=== PATIENT | male | born 1945 | race Caucasian/White ===

== ENCOUNTER 2018-04-20 11:32 | Observation (INO) ==
[2018-04-20 12:02] LABS: Urine Bilirubin Negative (NEGATIVE); Urine Ketone 15 mg/dL (NEGATIVE); Urine Nitrite Negative (NEGATIVE); Urine Protein 15 mg/dL (NEGATIVE); Urine Urobilinogen Normal (NORMAL); Urine pH 7.5 pH (5.0-7.0)
[2018-04-20 12:03] LABS: Hematocrit 40.3 % (42.0-52.0); Hemoglobin 13.7 gm/dL (13.5-18.0); Mean Cell Volume 91.6 fl (78-100); Mean Corpuscular Hemoglobin 31.1 pg (27-31); Mean Platelet Volume 9.1 fl (8-11.3); Neutrophil # 9.4 K/mm3 (1.3-6.0); Neutrophil % 81.9 % (42-75.0); Platelet Count 283 K/mm3 (150-450); Red Cell Distribution Width 12.2 % (11.5-14.0); White Blood Count 11.4 K/mm3 (4.0-10.5)
--- NOTE | 2018-04-20 12:07 | ERNOTE ---
Neuro HPI ER Record Presenting Symptoms: confusion Time Seen by Provider: 04/20/18 11:32 Source: patient Exam Limitations: no limitations Immunizations: IMMUNIZATION HX Immunizations Up to Date Yes Allergies/Adverse Reactions: Allergies Allergy/AdvReac Type Severity Reaction Status Date / Time ibuprofen Allergy Intermediate CVA S/S, Verified 04/20/18 17:07 EVERYTHING WENT BLACK, REQUIRED HOSPITALIZATION Penicillins AdvReac Mild ITCH, RASH Verified 04/20/18 17:07 Home Medications: HOME MEDICATIONS Albuterol Sulfate [Proair Hfa] 2 puff IH HS 08/03/14 [Last Taken 08/30/14] Aspirin [Aspirin Enteric Coated] 325 mg PO DAILY 08/03/14 [Last Taken 08/30/14] Fexofenadine HCl [Haley Allergy] 180 mg PO DAILY 08/03/14 [Last Taken 08/31/14] Fluticasone Propionate [Flonase] 2 spray NS DAILY 08/03/14 [Last Taken 08/30/14] Pravastatin Sodium [Pravachol] 80 mg PO HS 08/03/14 [Last Taken 08/30/14] amLODIPine BESYLATE [Norvasc] 10 mg PO DAILY 08/03/14 [Last Taken 08/31/14] Albuterol Sulfate [Ventolin HFA] 2 puff INHALATION Q6H 04/20/18 [Last Taken Unknown] Losartan Potassium 50 mg PO DAILY 04/20/18 [Last Taken Unknown] Multivitamin [Multivitamins] 1 ea PO DAILY 04/20/18 [Last Taken Unknown] Potassium 99 mg PO DAILY 04/20/18 [Last Taken Unknown] - History of Present Illness Narrative: Patient arrives by EMS for confusion, unable to give story later reports that patient started to act confused and was 'ratteling' sometime after midnight. They didn't call EMS until this morning Review of Systems - Narrative Narrative: unable to obtain due to patient's confusion Medical History (Last Reviewed 04/20/18 @ 17:26 by Angelica Last MD) HTN (hypertension) Hyperlipidemia Inguinal hernia Spinal stenosis Surgical History: Surgical History (Last Reviewed 04/20/18 @ 17:26 by Angelica Last MD) H/O arthroscopy H/O hernia repair History of abdominal aortic aneurysm repair [place] cataract surgery Family History: Family History (Last Reviewed 04/20/18 @ 17:07 by Ellie Tam RN) Brother Myocardial infarction Daughter Cancer Social History: Preferred Language [place] Do you have any synagogue or No cultural preference? Abuse History No History of abuse Psych History No pertinent hx Alcohol Use none Drug Use none No Social History Section defined drinks 5 beer every night Physical Exam - Physical Exam General Appearance: Present: alert, no apparent distress, obese Head Exam: Present: normal inspection, no evidence of injury Eye Exam: Normal inspection: bilateral Ears, Nose, Throat: Present: normal pharynx Respiratory: Present: no respiratory distress, chest nontender, rhonchi - both lungs Cardiovascular/Chest: Present: regular rate, rhythm, no murmur Gastrointestinal/Abdominal: Present: normal bowel sounds, nontender, soft, distended - slightly, obese. Absent: guarding, rebound Extremity Exam: Present: pedal edema - trace Neurological Exam: Present: disoriented to person, disoriented to time, disoriented to place, disoriented to situation, other - moves all extremities, doesn't follow any commands Skin Exam: Present: normal color, warm/dry Moises Coma Scale - Assess Eye Opening: Spontaneous Motor: Obeys Commands Verbal: Confused - Total Coma Scale Total: 14 Progress - Results and Orders Patient's Lab Results:: I have reviewed the patient's lab results. - Vital Signs Patient's Vital Signs:: I have reviewed the patient's vital signs. Vital Signs: Vital Signs 04/20/18 11:34 Temperature 36.0 C Pulse Rate 82 Respiratory Rate 26 H Blood Pressure 177/79 H O2 Sat by Pulse Oximetry 97 - EKG EKG #1 EKG: atrial fibrillation - poor quality EKG read: Interp. by me - X-Ray X-Ray #1 X-Ray: chest - no acute changes Interpretation: Reviewed by me X-Ray #2 X-Ray: abdomen - stool retention, no evidence of obstruction Interpretation: Reviewed by me - CT/Ultrasound CT/Ultrasound Narrative: CT head: 1. No acute intracranial hemorrhage or mass effect. 2. Ventricular enlargement without sulcal effacement. Consider normal pressure hydrocephalus. - Progress/Reassessment Chief Complaint: Altered Mental Status Progress Note-Subjective: 04/20/18 14:14 patient continues to be confused, unable to answer questions, appears uncomfortable no definite tenderness with abdominal palpation (no grimacing or other reaction) discussed the CT head, CXR and lab results with and daughter, will get abdominal Xray 04/20/18 15:00 discussed test results with and daughter only abnormality is slightly elevated WBC in blood and WBC and bacteria in urine 04/20/18 15:05 discussed with ron Jeffery to admit for observation and to start rocephin 04/20/18 15:39 patient vomited small amount of clear liquid Departure Clinical Impression: Confusion UTI (urinary tract infection) Qualifiers: Urinary tract infection type: acute cystitis Hematuria presence: without hematuria Qualified Code(s): N30.00 - Acute cystitis without hematuria - Departure Disposition: Still a patient Condition: Stable
[2018-04-20 12:08] LABS: Urine Blood 10 /ul (NEGATIVE)
[2018-04-20 12:09] LABS: Urine Appearance Slightly Cloudy (CLEAR); Urine Bacteria 2+; Urine Color Yellow; Urine RBC TRACE /hpf (0-5)
[2018-04-20 12:21] LABS: ALT 21 U/L (19-67); AST 20 U/L (0-48); Alkaline Phosphatase * 57 U/L (50-170); BNP * 1282 pg/mL (5-650); BUN/Creatinine Ratio 12.6 (9.0-21.6); Bilirubin, Total 0.9 mg/dL (0.0-1.1); Blood Urea Nitrogen 14 mg/dL (6-23); Ca. Corrected For Albumin 8.8 mg/dL (8.4-10.2); Calcium * 9.1 mg/dL (7.9-10.9); Carbon Dioxide 24.7 mmol/L (24-32.6); Chloride 93 mmol/L (97-106); Glucose * 173 mg/dL (70-110); Potassium 3.7 mmol/L (3.4-4.6); Sodium 129 mmol/L (132-142); Total Protein 7.8 gm/dL (6.2-8.2)
[2018-04-20 12:22] LABS: Troponin I Less than 0.017 ng/mL (0.00-0.10)
[2018-04-20 14:27] LABS: Cocaine Ur Negative (NEGATIVE); Urine Barbiturate Negative (NEGATIVE); Urine Benzodiazepines Negative (NEGATIVE); Urine Opiates Negative (NEGATIVE); Urine PCP Negative (NEGATIVE); Urine THC Negative (NEGATIVE)
[2018-04-20] MEDS ORDERED: ACETAMINOPHEN 650 MG SUPP.RECT RC ONE (14:58)
[2018-04-20] MEDS ORDERED: NORMAL SALINE 1,000 ML IV ONE (15:31)
[2018-04-20] MEDS ORDERED: ONDANSETRON HCL/PF 2 MG/ML VIAL ONE (15:39)
[2018-04-20] MEDS ORDERED: ONDANSETRON HCL/PF 2 MG/ML VIAL IV ONE (15:39)
--- NOTE | 2018-04-20 17:11 | HP ---
Chief Complaint - Chief Complaint Date of Service: 04/20/18 Time of Service: 17:12 Chief Complaint: Altered mental status History of Present Illness: 73-year-old male presented to the ER this a.m. for confusion and altered state. Per the family, he is coherent and can perform his ADLs without complication. They stated he was at his baseline the evening before, but was a A&O x0 when they tried to wake him this morning. EMS was called and he was brought into the ER for evaluation. Pertinent labs include a mildly elevated white count of 11.4 with a left shift of 81.9%, and elevated BNP of just over 1200, sodium of 129. He had a UA which showed some urine bacteria as well as positive white blood cell count but no other infectious markers. Blood and urine cultures were ordered and patient was given a gram of Rocephin for possible UTI. Head CT showed IMPRESSION: 1. No acute intracranial hemorrhage or mass effect. 2. Ventricular enlargement without sulcal effacement. Consider normal pressure hydrocephalus. 3. Additional comments as above. Patient has a history of hypertension, hyperlipidemia, asthma, and aortic aneurysm repair. Patient's family states that he has been falling down of late which is abnormal for him as well as having difficulty with voiding. They deny him having any fevers, chills, nausea vomiting, pain with urination. He has not endorsed headache, vision changes, pain with neck rotation. Again, he was 100% at his baseline when he went to bed last night. Medical History (Last Reviewed 04/20/18 @ 17:26 by Angelica Last MD) HTN (hypertension) Hyperlipidemia Inguinal hernia Spinal stenosis Surgical History: Surgical History (Last Reviewed 04/20/18 @ 17:26 by Angelica Last MD) H/O arthroscopy H/O hernia repair History of abdominal aortic aneurysm repair [place] cataract surgery Family History: Family History (Last Reviewed 04/20/18 @ 17:07 by Ellie Tam RN) Brother Myocardial infarction Daughter Cancer Social History: Patient Lives/Resources Home Utilized Preferred Language [place] Do you have any roman catholic or No cultural preference? Smoking Status Never smoker Have you smoked in the past 12 No months Abuse History No History of abuse Psych History No pertinent hx Alcohol Use none Drug Use none No Social History Section defined Review Of Systems (GEN) - Review of Systems Generalized/Overall Review: Absent: No Symptoms Reported - Unable to obtain review of systems due to altered mental status Immunizations: IMMUNIZATION HX Immunizations Up to Date Yes Allergies/Adverse Reactions: Allergies Allergy/AdvReac Type Severity Reaction Status Date / Time ibuprofen Allergy Intermediate CVA S/S, Verified 04/20/18 17:07 EVERYTHING WENT BLACK, REQUIRED HOSPITALIZATION Penicillins AdvReac Mild ITCH, RASH Verified 04/20/18 17:07 Home Medications: HOME MEDICATIONS Albuterol Sulfate [Proair Hfa] 2 puff IH HS 08/03/14 [Last Taken 08/30/14] Aspirin [Aspirin Enteric Coated] 325 mg PO DAILY 08/03/14 [Last Taken 08/30/14] Fexofenadine HCl [Haley Allergy] 180 mg PO DAILY 08/03/14 [Last Taken 08/31/14] Fluticasone Propionate [Flonase] 2 spray NS DAILY 08/03/14 [Last Taken 08/30/14] Pravastatin Sodium [Pravachol] 80 mg PO HS 08/03/14 [Last Taken 08/30/14] amLODIPine BESYLATE [Norvasc] 10 mg PO DAILY 08/03/14 [Last Taken 08/31/14] Albuterol Sulfate [Ventolin HFA] 2 puff INHALATION Q6H 04/20/18 [Last Taken Unknown] Losartan Potassium 50 mg PO DAILY 04/20/18 [Last Taken Unknown] Multivitamin [Multivitamins] 1 ea PO DAILY 04/20/18 [Last Taken Unknown] Potassium 99 mg PO DAILY 04/20/18 [Last Taken Unknown] Exam - Exam Vital Signs: Vital Signs - Last Taken Temp 38.0 C 04/20/18 17:01 Pulse 89 04/20/18 17:01 Resp 20 04/20/18 17:01 BP 168/72 H 04/20/18 17:01 Pulse Ox 93 04/20/18 17:01 Cardiovascular/Chest: Present: normal peripheral pulses, regular rate, rhythm. Absent: no edema - trace bilateral edema mid leigh Skin Exam: Present: diaphoresis Neurologic: Present: disoriented x 3 - combative with exam of any kind. Absent: alert, facial droop Thoughts: Present: visual hallucinations - Speaking with children Diagnostic Studies: Abnormal Lab Results 04/20/18 04/20/18 04/20/18 Range/Units 11:49 11:50 11:50 WBC 11.4 H (4.0-10.5) K/mm3 RBC 4.40 L (4.7-6.0) M/mm3 Hct 40.3 L (42.0-52.0) % MCH 31.1 H (27-31) pg Immature Gran # (Auto) 0.05 H (0.000-0.0310) K/mm3 Neutrophils % 81.9 H (42-75.0) % Lymphocytes % 9.1 L (20-51) % Neutrophils # 9.4 H (1.3-6.0) K/mm3 Lymphocytes # 1.04 L (1.5-3.5) k/mm3 Sodium 129 L (132-142) mmol/L Chloride 93 L (97-106) mmol/L Anion Gap 15.0 H (6.8-13.8) mmol/L Random Glucose 173 H (70-110) mg/dL B-Natriuretic Peptide 1282 H (5-650) pg/mL Urine Protein 15 H (NEGATIVE) mg/dL Urine Blood 10 H (NEGATIVE) /ul Urine WBC 5-10 H (0-5) /hpf Urine Bacteria 2+ H (NONE) Laboratory Results WBC 11.4 K/mm3 (4.0-10.5) H 04/20/18 11:50 RBC 4.40 M/mm3 (4.7-6.0) L 04/20/18 11:50 Hgb 13.7 gm/dL (13.5-18.0) 04/20/18 11:50 Hct 40.3 % (42.0-52.0) L 04/20/18 11:50 MCV 91.6 fl (78-100) 04/20/18 11:50 MCH 31.1 pg (27-31) H 04/20/18 11:50 MCHC 34.0 g/dl (32-36) 04/20/18 11:50 RDW 12.2 % (11.5-14.0) 04/20/18 11:50 Plt Count 283 K/mm3 (150-450) 04/20/18 11:50 MPV 9.1 fl (8-11.3) 04/20/18 11:50 Immature Gran % (Auto) 0.40 % (0.001-0.429) 04/20/18 11:50 Immature Gran # (Auto) 0.05 K/mm3 (0.000-0.0310) H 04/20/18 11:50 Neutrophils % 81.9 % (42-75.0) H 04/20/18 11:50 Lymphocytes % 9.1 % (20-51) L 04/20/18 11:50 Monocytes % 8.1 % (0.0-9) 04/20/18 11:50 Eosinophils % 0.1 % (0.0-3.0) 04/20/18 11:50 Basophils % 0.4 % (0.0-1.0) 04/20/18 11:50 Nucleated RBC % 0.0 k/mm3 (0-1) 04/20/18 11:50 Neutrophils # 9.4 K/mm3 (1.3-6.0) H 04/20/18 11:50 Lymphocytes # 1.04 k/mm3 (1.5-3.5) L 04/20/18 11:50 Monocytes # 0.9 k/mm3 (0.0-1.0) 04/20/18 11:50 Eosinophils # 0.0 k/mm3 (0.0-0.7) 04/20/18 11:50 Absolute Basophils 0.1 k/mm3 (0.0-0.1) 04/20/18 11:50 Sodium 129 mmol/L (132-142) L 04/20/18 11:50 Plasma Sodium 130 mmol/L (130-142) 04/20/18 11:50 Potassium 3.7 mmol/L (3.4-4.6) 04/20/18 11:50 Chloride 93 mmol/L (97-106) L 04/20/18 11:50 Carbon Dioxide 24.7 mmol/L (24-32.6) 04/20/18 11:50 Anion Gap 15.0 mmol/L (6.8-13.8) H 04/20/18 11:50 BUN 14 mg/dL (6-23) 04/20/18 11:50 Creatinine 1.11 mg/dL (0.4-1.4) 04/20/18 11:50 Est GFR (Non-Af Amer) 69 mL/min (60-130) D 04/20/18 11:50 BUN/Creatinine Ratio 12.6 (9.0-21.6) 04/20/18 11:50 Random Glucose 173 mg/dL (70-110) H 04/20/18 11:50 Lactic Acid, Venous 2.0 mmol/L (0.4-2.0) 04/20/18 12:10 Calcium 9.1 mg/dL (7.9-10.9) 04/20/18 11:50 Calcium Adj for Albumin 8.8 mg/dL (8.4-10.2) 04/20/18 11:50 Total Bilirubin 0.9 mg/dL (0.0-1.1) 04/20/18 11:50 AST 20 U/L (0-48) 04/20/18 11:50 ALT 21 U/L (19-67) 04/20/18 11:50 Alkaline Phosphatase 57 U/L (50-170) 04/20/18 11:50 Troponin I Less than 0.017 ng/mL (0.00-0.10) 04/20/18 11:50 B-Natriuretic Peptide 1282 pg/mL (5-650) H 04/20/18 11:50 Total Protein 7.8 gm/dL (6.2-8.2) 04/20/18 11:50 Albumin 4.0 gm/dl (3.4-5.0) 04/20/18 11:50 Urine Color Yellow 04/20/18 11:49 Urine Appearance Slightly cloudy (CLEAR) 04/20/18 11:49 Urine pH 7.5 pH (5.0-7.0) 04/20/18 11:49 Ur Specific [place] 1.020 SP.GR. (1.005-1.030) 04/20/18 11:49 Urine Protein 15 mg/dL (NEGATIVE) H 04/20/18 11:49 Urine Glucose (UA) Negative mg/dL (NEGATIVE) 04/20/18 11:49 Urine Ketones 15 mg/dL (NEGATIVE) 04/20/18 11:49 Urine Blood 10 /ul (NEGATIVE) H 04/20/18 11:49 Urine Nitrate Negative (NEGATIVE) 04/20/18 11:49 Urine Bilirubin Negative mg/dl (NEGATIVE) 04/20/18 11:49 Prot Sulfosalicylic Acd 1+ mg/dL (0) 04/20/18 11:49 Urine Urobilinogen Normal EU/dl (NORMAL) 04/20/18 11:49 Ur Leukocyte Esterase Negative /ul (NEGATIVE) 04/20/18 11:49 Urine RBC Trace /hpf (0-5) 04/20/18 11:49 Urine WBC 5-10 /hpf (0-5) H 04/20/18 11:49 Ur Epithelial Cells None seen /hpf (0-5) 04/20/18 11:49 Urine Bacteria 2+ (NONE) H 04/20/18 11:49 Urine Culture Comments Culture to follow 04/20/18 11:49 Urine Opiates Screen Negative (NEGATIVE) 04/20/18 11:40 Barbiturate Screen Negative (NEGATIVE) 04/20/18 11:40 Ur Phencyclidine Scrn Negative (NEGATIVE) 04/20/18 11:40 Urine Amphetamine Negative (NEGATIVE) 04/20/18 11:40 U Benzodiazepines Scrn Negative (NEGATIVE) 04/20/18 11:40 Urine Cocaine Screen Negative (NEGATIVE) 04/20/18 11:40 Urine Marijuana (THC) Negative (NEGATIVE) 04/20/18 11:40 Ethyl Alcohol Less than 3.0 mg/dL (0.0-10.0) 04/20/18 11:50 Assessment/Plan - Narrative Narrative: Concerns for rapidly deteriorating mentation, unable to obtain brain MRI due to hardware in his belly. Patient to be transferred to the [facility] for the increased level of care for likely intracranial pathology-either infectious or pressure related. If it is NPH the patient will need a shunt placed through neurosurgery. But meningitis also a possibility, considered doing lumbar puncture but started the transfer process the moment I saw him after arriving on the floor 10 minutes following arrival. Blood and urine cultures are pending. Patient did receive 1 g Rocephin in the ER. He had an elevated temperature of 100.4 when he first got to the floor, had been afebrile prior to this since arriving to the hospital. His other vital signs are stable. Dr. Sweet, and ER physician at the [facility], accepted the transfer after discussing the case with her. - Assessment/Plan (1) Altered mental status Problem: Acute
--- NOTE | 2018-04-20 17:31 | DS ---
Transfer Discharge Summary - Course Description of Stay: 73-year-old male presented to the ER this a.m. for confusion and altered state. Per the family, he is coherent and can perform his ADLs without complication. They stated he was at his baseline the evening before, but was a A&O x0 when they tried to wake him this morning. EMS was called and he was brought into the ER for evaluation. Pertinent labs include a mildly elevated white count of 11.4 with a left shift of 81.9%, and elevated BNP of just over 1200, sodium of 129. He had a UA which showed some urine bacteria as well as positive white blood cell count but no other infectious markers. Blood and urine cultures were ordered and patient was given a gram of Rocephin for possible UTI. Head CT showed IMPRESSION: 1. No acute intracranial hemorrhage or mass effect. 2. Ventricular enlargement without sulcal effacement. Consider normal pressure hydrocephalus. 3. Additional comments as above. Patient has a history of hypertension, hyperlipidemia, asthma, and aortic aneurysm repair. Patient's family states that he has been falling down of late which is abnormal for him as well as having difficulty with voiding. They deny him having any fevers, chills, nausea vomiting, pain with urination. He has not endorsed headache, vision changes, pain with neck rotation. Again, he was 100% at his baseline when he went to bed last night. Upon arrival to the floor patient was a&O x0, was combative, and had just reached a temperature of 100.4. Review of systems unable to be obtained, physical exam was limited. Considered LP but was unsure if it was a pressure problem versus an infectious problem as patient had no signs or symptoms of infection prior to the temperature of 100.4. Further discussion with the family made it sound like it was more of a pressure problem and so it was decided to transfer the patient to a higher level of care facility in case of shunt needed to be placed by neurosurgery. Case was discussed with Dr. Sweet, and ER physician at the [facility], who accepted the transfer. Procedures Performed: none - Results and Findings Results and Findings: Laboratory Results - last 24 hr 04/20/18 04/20/18 04/20/18 11:40 11:49 11:50 WBC 11.4 H RBC 4.40 L Hgb 13.7 Hct 40.3 L MCV 91.6 MCH 31.1 H MCHC 34.0 RDW 12.2 Plt Count 283 MPV 9.1 Immature Gran % (Auto) 0.40 Immature Gran # (Auto) 0.05 H Neutrophils % 81.9 H Lymphocytes % 9.1 L Monocytes % 8.1 Eosinophils % 0.1 Basophils % 0.4 Nucleated RBC % 0.0 Neutrophils # 9.4 H Lymphocytes # 1.04 L Monocytes # 0.9 Eosinophils # 0.0 Absolute Basophils 0.1 Sodium Plasma Sodium Potassium Chloride Carbon Dioxide Anion Gap BUN Creatinine Est GFR (Non-Af Amer) BUN/Creatinine Ratio Random Glucose Lactic Acid, Venous Calcium Calcium Adj for Albumin Total Bilirubin AST ALT Alkaline Phosphatase Troponin I B-Natriuretic Peptide Total Protein Albumin Urine Color Yellow Urine Appearance Slightly cloudy Urine pH 7.5 Ur Specific [place] 1.020 Urine Protein 15 H Urine Glucose (UA) Negative Urine Ketones 15 Urine Blood 10 H Urine Nitrate Negative Urine Bilirubin Negative Prot Sulfosalicylic Acd 1+ Urine Urobilinogen Normal Ur Leukocyte Esterase Negative Urine RBC Trace Urine WBC 5-10 H Ur Epithelial Cells None seen Urine Bacteria 2+ H Urine Culture Comments Culture to follow Urine Opiates Screen Negative Barbiturate Screen Negative Ur Phencyclidine Scrn Negative Urine Amphetamine Negative U Benzodiazepines Scrn Negative Urine Cocaine Screen Negative Urine Marijuana (THC) Negative Ethyl Alcohol 04/20/18 04/20/18 04/20/18 11:50 11:50 12:10 WBC RBC Hgb Hct MCV MCH MCHC RDW Plt Count MPV Immature Gran % (Auto) Immature Gran # (Auto) Neutrophils % Lymphocytes % Monocytes % Eosinophils % Basophils % Nucleated RBC % Neutrophils # Lymphocytes # Monocytes # Eosinophils # Absolute Basophils Sodium 129 L Plasma Sodium 130 Potassium 3.7 Chloride 93 L Carbon Dioxide 24.7 Anion Gap 15.0 H BUN 14 Creatinine 1.11 Est GFR (Non-Af Amer) 69 D BUN/Creatinine Ratio 12.6 Random Glucose 173 H Lactic Acid, Venous 2.0 Calcium 9.1 Calcium Adj for Albumin 8.8 Total Bilirubin 0.9 AST 20 ALT 21 Alkaline Phosphatase 57 Troponin I Less than 0.017 B-Natriuretic Peptide 1282 H Total Protein 7.8 Albumin 4.0 Urine Color Urine Appearance Urine pH Ur Specific [place] Urine Protein Urine Glucose (UA) Urine Ketones Urine Blood Urine Nitrate Urine Bilirubin Prot Sulfosalicylic Acd Urine Urobilinogen Ur Leukocyte Esterase Urine RBC Urine WBC Ur Epithelial Cells Urine Bacteria Urine Culture Comments Urine Opiates Screen Barbiturate Screen Ur Phencyclidine Scrn Urine Amphetamine U Benzodiazepines Scrn Urine Cocaine Screen Urine Marijuana (THC) Ethyl Alcohol Less than 3.0 - Medications Medications: Active Medications Ceftriaxone Sodium 1,000 mg/ (Dextrose/Water) 100 mls @ 200 mls/hr IV Q24H PATRIC; Protocol Stop: 05/20/18 15:31 Last Infusion: 04/20/18 16:41 Dose: Infused Documented by: Sodium Chloride (Sodium Chloride 0.9%) 1,000 mls @ 150 mls/hr IV .[id number] ONE Stop: 04/20/18 22:10 Last Admin: 04/20/18 16:10 Dose: 150 mls/hr Documented by: Discontinued Medications Acetaminophen (Tylenol Suppository) 650 mg RC ONCE ONE Stop: 04/20/18 14:59 Last Admin: 04/20/18 15:01 Dose: 650 mg Documented by: Ondansetron HCl (Zofran) 4 mg IV ONCE ONE Stop: 04/20/18 15:40 Last Admin: 04/20/18 15:40 Dose: 4 mg Documented by: - Disposition Disposition: Still a patient Condition: Critical Discharge Date: 04/20/18 - Transfer to [facility] by EMS Discharge Time: 19:57
[2018-04-21 00:31] VITALS: BP 169/70
== END 2018-04-20 19:45 | disposition short-term general hospital (02) ==
LOC: ER 11:32 → MS 11:32
PROVIDERS: ADMIT Family Medicine; ATTEND Family Medicine
DX: R41.82 Altered mental status, unspecified
CPT/HCPCS: 36415; 70450; 71010; 71045; 74019; 74020; 80053; 80307; 80320; 81001; 83519; 83605; 83880; 84484; 85025; 87040; 87086; 93005; 94760; 96365; 96375; 99285; G0378; G0481; J2405

== ENCOUNTER 2020-09-26 09:06 | Observation (INO) ==
[2020-09-26 09:43] LABS: Hematocrit 38.2 % (42.0-52.0); Mean Cell Volume 89.3 fl (78-100); Mean Corpuscular Hemoglobin 30.4 pg (27-31); Mean Platelet Volume 8.6 fl (8-11.3); Neutrophil # 8.5 K/mm3 (1.3-6.0); Neutrophil % 75.3 % (42-75.0); Platelet Count 301 K/mm3 (150-450); Red Blood Count 4.28 M/mm3 (4.7-6.0); Red Cell Distribution Width 12.5 % (11.5-14.0); White Blood Count 11.2 K/mm3 (4.0-10.5)
--- NOTE | 2020-09-26 09:58 | ERNOTE ---
Medical Problem HPI - General Chief Complaint: Fall Time Seen by Provider: 09/26/20 09:40 Source: patient, family Exam Limitations: no limitations - Immun/Allergies/Home Medications Immunizations: IMMUNIZATION HX Immunizations Up to Date Yes Immunizations Comment covid series completed History of Influenza Vaccine Yes Hx Pneumococcal Vaccination Yes Allergies/Adverse Reactions: Allergies cat dander Allergy (Severe, Verified 09/26/20 12:21) Swelling of Throat ibuprofen Allergy (Intermediate, Verified 09/26/20 12:21) CVA S/S, EVERYTHING WENT BLACK, REQUIRED HOSPITALIZATION Penicillins Adverse Reaction (Mild, Verified 09/26/20 12:21) ITCH, RASH oregano Adverse Reaction (Verified 09/26/20 12:21) Nausea severe nausea and diarrhea per patient Home Medications: HOME MEDICATIONS Multivitamin [Multivitamins] 1 ea PO DAILY 04/20/18 [Last Taken Unknown] aspirin 325 mg tablet 325 mg PO DAILY 05/04/18 [Last Taken Unknown] magnesium hydroxide 400 mg/5 mL oral suspension 30 ml PO BID PRN ml 05/11/18 [Last Taken Unknown] naproxen sodium 220 mg tablet 220 mg PO BID PRN 05/11/18 [Last Taken Unknown] walker See Dose Instructions .ROUTE .MEDSUPPLY #1 ea 05/22/18 [Last Taken Unknown] potassium 99 mg tablet 99 mg PO DAILY 07/27/18 [Last Taken Unknown] Posture Walker 0 .ROUTE .MEDSUPPLY #1 ea 10/21/19 [Last Taken Unknown] Ventolin HFA 90 mcg/actuation aerosol inhaler See Rx Instructions .ROUTE .COMPLEX #18 gram NS 01/26/20 [Last Taken Unknown] montelukast 10 mg tablet See Rx Instructions .ROUTE .COMPLEX #90 tablet 04/03/20 [Last Taken Unknown] amlodipine 10 mg tablet See Rx Instructions .ROUTE .COMPLEX #90 tablet 04/12/20 [Last Taken Unknown] losartan 50 mg tablet See Rx Instructions .ROUTE .COMPLEX #90 tablet 04/12/20 [Last Taken Unknown] pravastatin 40 mg tablet See Rx Instructions .ROUTE .COMPLEX #90 tablet 04/12/20 [Last Taken Unknown] fluticasone propionate 50 mcg/actuation nasal spray,suspension See Rx Instructions .ROUTE .COMPLEX #15.8 ml 09/11/20 [Last Taken Unknown] - History of Present History Narrative: Patient is coming to the ER for progressive weakness and recurrent falls. He states that he has been having problems with his balance for probably about 3 years and does not walk a whole lot but he is been getting progressively more weak recently. Over the last few days he has not had much of an appetite, has felt more diffusely weak and foggy. He denies any significant pain. Yesterday he fell in the bathroom, was seen in the ER, x-ray of the hip where he had pain did not show any significant injury and he was discharged home. Today he was trying to use his 's walker which has a seat. As he was trying to sit down he missed and landed on his buttock. He denies hitting his head, denies passing out but was unable to get up without help so they called EMS and he arrives by ambulance. He denies any significant pain at this point. On review of his chart his sodium yesterday was 123, he seems to be usually running more in the 130s. There is a prior documented sodium of 129 on the chart, at that point he was also very confused, had mental status changes and ended up being transferred to [place] Review of Systems - Review of Systems Constitutional: Present: weakness, malaise. Absent: fever EYE: Absent: vision changes ENT: Absent: nose congestion Respiratory: Present: cough - Chronic at baseline. Absent: shortness of breath Cardiology: Absent: chest pain Gastrointestinal/Abdominal: Present: eating less, drinking less. Absent: vomiting, diarrhea, abdominal pain Genitourinary: Present: no symptoms reported Musculoskeletal: Absent: back pain Neurological: Present: weakness - Generalized. Absent: headache Medical History (Last Reviewed 09/26/20 @ 10:25 by Angelica Last MD) Bacteriuria Onset Date: ~04/23/18 Disequilibrium NPH (normal pressure hydrocephalus) Onset Date: ~04/23/18 Urinary retention Onset Date: ~05/08/18 AF (paroxysmal atrial fibrillation) Onset Date: Unknown rate controlled; not on anticoagulation, high risk fall Anemia, normocytic normochromic Onset Date: Unknown H/O gastroesophageal reflux (GERD) Onset Date: Unknown HTN (hypertension) Onset Date: Unknown Hyperlipidemia Onset Date: Unknown Spinal stenosis Onset Date: Unknown Acute encephalopathy Onset Date: ~04/23/18 Inguinal hernia Onset Date: Unknown Surgical History: Surgical History (Last Reviewed 09/26/20 @ 10:26 by Angelica Last MD) H/O arthroscopy Onset Date: ~08/31/14 -left knee H/O hernia repair Onset Date: ~1968 History of abdominal aortic aneurysm repair [facility] [facility] Onset Date: ~2014 Family History: Family History (Last Reviewed 09/26/20 @ 12:18 by Lonny Moy RN) Brother Myocardial infarction Daughter Cancer Father Myocardial infarction Mother Heart disease Social History: (Last Reviewed 09/26/20 @ 12:18 by Lonny Moy RN) Social History: Marital status: lives independently: Yes household members: spouse current occupational status: retired Sexually Active: No Service: Yes Tobacco: Smoking Status: Former smoker Alcohol: alcohol intake: current Substance Use: substance use type: does not use Dietary Habits: caffeine: Yes Physical Exam - Physical Exam General Appearance: Present: wd/wn, alert, no apparent distress Head Exam: Present: normal inspection, no evidence of injury Eye Exam: Normal inspection: bilateral, PERRL: bilateral Ears, Nose, Throat: Present: normal pharynx Respiratory: Present: no respiratory distress, normal breath sounds, no accessory muscle use, rales - few (upper airway) Cardiovascular/Chest: Present: regular rate, rhythm, no murmur Gastrointestinal/Abdominal: Present: normal bowel sounds, nontender, nondistend ed, soft Back Exam: Present: normal inspection, normal range of motion, no CVA tenderness, no vertebral tenderness Extremity Exam: Present: no edema Neurological Exam: Present: alert, oriented, normal mood/affect, no motor/sensory deficits, 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 - Vital Signs Patient's Vital Signs:: I have reviewed the patient's vital signs. Vital Signs: Vital Signs 09/26/20 09:11 09/26/20 09:15 Temperature 36.0 C Pulse Rate 63 86 Respiratory Rate 17 Blood Pressure 159/66 H O2 Sat by Pulse Oximetry 98 - Progress/Reassessment Chief Complaint: Fall Progress Note-Subjective: 09/26/20 10:32 discussed test results with patient and family, suggested admission for hyponatremia discussed that they might need to make changes to their living situation as they both have decreased mobility and are using walkers 09/26/20 10:[address] Taylor, okay to admit for observation for weakness and hyponatremia Departure Clinical Impression: Hyponatremia, Weakness - Departure Disposition: Still a patient Condition: Stable
[2020-09-26 10:01] LABS: Albumin * 3.2 gm/dl (3.4-5.0); Anion Gap 11.5 mmol/L (6.8-13.8); BUN/Creatinine Ratio 18.4 (9.0-21.6); Bilirubin, Total 0.9 mg/dL (0.0-1.1); Ca. Corrected For Albumin 8.5 mg/dL (8.4-10.2); Calcium * 8.2 mg/dL (7.9-10.9); Carbon Dioxide 25.1 mmol/L (24-32.6); Potassium 3.6 mmol/L (3.4-4.6); Total Protein 6.5 gm/dL (6.2-8.2)
[2020-09-26] MEDS ORDERED: NORMAL SALINE 1,000 ML IV ONE ×2 (10:53→15:02)
[2020-09-26] MEDS ORDERED: ALBUTEROL SULFATE 2.5 MG/3 ML VIAL.NEB IH PRN (15:03)
[2020-09-26] MEDS ORDERED: MAGNESIUM HYDROXIDE 30 ML UDC PO PRN (15:03)
[2020-09-26] MEDS ORDERED: MONTELUKAST SODIUM 10 MG TABLET PO SCH ×2 (15:15→21:00)
[2020-09-26] MEDS ORDERED: FLUTICASONE PROPIONATE 120 SPRAY INHALER NS SCH ×2 (15:15→21:00)
--- NOTE | 2020-09-26 15:48 | HP ---
Chief Complaint - Chief Complaint Date of Service: 09/26/20 Time of Service: 15:25 Chief Complaint: I have been weak and falling the past 3 days History of Present Illness: 75-year-old male with past medical history of A. fib, GERD, h ypertension, NPH, spinal stenosis, and hyperlipidemia was evaluated in the ER for recurrent falls and weakness that has been occurring over the past several days. Patient was seen yesterday for fall that occurred while he was in the bathroom causing him to fall by his tolerable. The patient has a long history of falls and poor balance due to his NPH which has been progressing. Another fall recurred this morning and he was unable to get up therefore EMS was called. Upon questioning he admits to not eating or drinking much over the past 2 to 3 days after a fall that occurred several days ago, the patient reports completely losing his appetite which is new for him. Since then he has grown weaker and has been having more issues with balance. Once in the ER a lab work-up revealed hyponatremia which is relatively new for the patient. The patient was seen in the ER yesterday and was treated with IV fluids but only showed minimal improvement, therefore decision to admit the patient for management of his electrolyte imbalance and generalized weakness was made. He denies hitting his head or losing consciousness and no witnessed seizure activity was reported. Medical History (Last Reviewed 09/26/20 @ 12:18 by Lonny Moy RN) Bacteriuria Onset Date: ~04/23/18 Disequilibrium NPH (normal pressure hydrocephalus) Onset Date: ~04/23/18 Urinary retention Onset Date: ~05/08/18 AF (paroxysmal atrial fibrillation) Onset Date: Unknown rate controlled; not on anticoagulation, high risk fall Anemia, normocytic normochromic Onset Date: Unknown H/O gastroesophageal reflux (GERD) Onset Date: Unknown HTN (hypertension) Onset Date: Unknown Hyperlipidemia Onset Date: Unknown Spinal stenosis Onset Date: Unknown Acute encephalopathy Onset Date: ~04/23/18 Inguinal hernia Onset Date: Unknown Surgical History: Surgical History (Last Reviewed 09/26/20 @ 12:18 by Lonny Moy RN) H/O arthroscopy Onset Date: ~08/31/14 -left knee H/O hernia repair Onset Date: ~1968 History of abdominal aortic aneurysm repair Onset Date: ~05/2014 [place] cataract surgery Onset Date: ~2014 Family History: Family History (Last Reviewed 09/26/20 @ 12:18 by Lonny Moy RN) Brother Myocardial infarction Daughter Cancer Father Myocardial infarction Mother Heart disease Social History: (Last Reviewed 09/26/20 @ 12:18 by Lonny Moy RN) Social History: Marital status: lives independently: Yes household members: spouse current occupational status: retired Sexually Active: No Service: Yes Tobacco: Smoking Status: Former smoker Alcohol: alcohol intake: current Substance Use: substance use type: does not use Dietary Habits: caffeine: Yes Peds Patient Hx - Developmental: No Pertinent Hx Peds Patient Hx - Medical: No Pertinent Hx Peds Patient Hx - Cardiac/Respiratory: No Pertinent Hx Peds Patient Hx - Surgical: No Surgical History Patient History - Cancer: No Hx of Cancer Review Of Systems (GEN) - Review of Systems Generalized/Overall Review: Present: Weakness EENTM: Present: No Symptoms Reported Respiratory: Present: No Symptoms Reported Cardiac: Present: No Symptoms Reported Abdominal: Present: No Symptoms Reported Genitourinary: Present: No Symptoms Reported Musculoskeletal: Present: No Symptoms Reported Neurological: Present: Weakness, Other - Balance problems. Skin: Present: No Symptoms Reported Endocrine: Present: No Symptoms Reported Immunizations: IMMUNIZATION HX Immunizations Up to Date Yes Immunizations Comment covid series completed History of Influenza Vaccine Yes Hx Pneumococcal Vaccination Yes Allergies/Adverse Reactions: Allergies Allergy/AdvReac Type Severity Reaction Status Date / Time cat dander Allergy Severe Swelling Verified 09/26/20 12:21 of Throat ibuprofen Allergy Intermediate CVA S/S, Verified 09/26/20 12:21 EVERYTHING WENT BLACK, REQUIRED HOSPITALIZATION Penicillins AdvReac Mild ITCH, RASH Verified 09/26/20 12:21 oregano AdvReac Nausea Verified 09/26/20 12:21 Home Medications: HOME MEDICATIONS Multivitamin [Multivitamins] 1 ea PO DAILY 04/20/18 [Last Taken Unknown] aspirin 325 mg tablet 325 mg PO DAILY 05/04/18 [Last Taken Unknown] magnesium hydroxide 400 mg/5 mL oral suspension 30 ml PO BID PRN ml 05/11/18 [Last Taken Unknown] walker See Dose Instructions .ROUTE .MEDSUPPLY #1 ea 05/22/18 [Last Taken Unknown] potassium 99 mg tablet 99 mg PO DAILY 07/27/18 [Last Taken Unknown] Posture Walker 0 .ROUTE .MEDSUPPLY #1 ea 10/21/19 [Last Taken Unknown] Albuterol Sulfate [Ventolin HFA] 2 puff IH BID PRN 09/26/20 [Last Taken Unknown] Fluticasone Propionate [Flonase] 2 spray NS DAILY 09/26/20 [Last Taken Unknown] Losartan Potassium 50 mg PO DAILY 09/26/20 [Last Taken Unknown] Montelukast Sodium [Singulair] 10 mg PO DAILY 09/26/20 [Last Taken Unknown] Pravastatin Sodium 40 mg PO HS 09/26/20 [Last Taken Unknown] amLODIPine BESYLATE [Norvasc] 10 mg PO DAILY 09/26/20 [Last Taken Unknown] Exam - Exam Vital Signs: Vital Signs - Last Taken Temp 36.8 C 09/26/20 12:22 Pulse 63 09/26/20 12:22 Resp 20 09/26/20 12:22 BP 139/59 09/26/20 12:22 Pulse Ox 98 09/26/20 12:22 Constitutional: Present: Alert, Oriented x3, Cooperative, Well developed, Well nourished, No distress, Elderly ENT Exam: Present: normal ENT inspection, hearing grossly normal, pharynx normal Eye Exam: bilateral eye: normal inspection, PERRL, EOMI Neck: Present: non-tender, full range of motion, supple, normal inspection, trachea midline Back Exam: Present: normal inspection, no CVA tenderness, no vertebral tenderness Breasts: Present: Exam deferred, Nontender Respiratory: Present: chest non-tender, lungs clear, normal breath sounds, no respiratory distress, no accessory muscle use Cardiovascular/Chest: Present: normal peripheral pulses, no chest tenderness, no edema, no gallop, no JVD, no murmur, no rub Peripheral Pulses: dorsalis-pedis (R): 2+, dorsalis-pedis (L): 2+ Abdomen: Present: Normal bowel sounds, soft, nontender, nondistended, no rebound tenderness, no hepatospenomegaly, no masses, obese /Rectal: Present: Exam deferred Extremity: Present: normal range of motion, non-tender, normal inspection, no pedal edema, no calf tenderness Skin Exam: Present: normal color, warm/dry, no cyanosis Lymphatic: Present: no adenopathy Neurologic: Present: client coordinator II-XII nml as tested, no motor/sensory deficits, alert, normal mood/affect, oriented x 3 Appearance: Present: appropriate appearance, appropriate insight, neat, no memory impairment Eye contact: Present: cooperative, good eye contact, normal speech Thoughts: Present: normal thought pattern, no apparent hallucination Diagnostic Studies: Abnormal Lab Results 09/26/20 09/26/20 Range/Units 09:40 09:40 WBC 11.2 H (4.0-10.5) K/mm3 RBC 4.28 L (4.7-6.0) M/mm3 Hgb 13.0 L (13.5-18.0) gm/dL Hct 38.2 L (42.0-52.0) % Immature Gran % (Auto) 0.60 H (0.001-0.429) % Immature Gran # (Auto) 0.07 H (0.000-0.0310) K/mm3 Neutrophils % 75.3 H (42-75.0) % Lymphocytes % 12.7 L (20-51) % Monocytes % 10.3 H (0.0-9) % Neutrophils # 8.5 H (1.3-6.0) K/mm3 Lymphocytes # 1.42 L (1.5-3.5) k/mm3 Monocytes # 1.2 H (0.0-1.0) k/mm3 Sodium 126 L (132-142) mmol/L Plasma Sodium 127 L (130-142) mmol/L Chloride 93 L (97-106) mmol/L Random Glucose 136 H (70-110) mg/dL Albumin 3.2 L (3.4-5.0) gm/dl Laboratory Results WBC 11.2 K/mm3 (4.0-10.5) H 09/26/20 09:40 RBC 4.28 M/mm3 (4.7-6.0) L 09/26/20 09:40 Hgb 13.0 gm/dL (13.5-18.0) L 09/26/20 09:40 Hct 38.2 % (42.0-52.0) L 09/26/20 09:40 MCV 89.3 fl (78-100) 09/26/20 09:40 MCH 30.4 pg (27-31) 09/26/20 09:40 MCHC 34.0 g/dl (32-36) 09/26/20 09:40 RDW 12.5 % (11.5-14.0) 09/26/20 09:40 Plt Count 301 K/mm3 (150-450) 09/26/20 09:40 MPV 8.6 fl (8-11.3) 09/26/20 09:40 Immature Gran % (Auto) 0.60 % (0.001-0.429) H 09/26/20 09:40 Immature Gran # (Auto) 0.07 K/mm3 (0.000-0.0310) H 09/26/20 09:40 Neutrophils % 75.3 % (42-75.0) H 09/26/20 09:40 Lymphocytes % 12.7 % (20-51) L 09/26/20 09:40 Monocytes % 10.3 % (0.0-9) H 09/26/20 09:40 Eosinophils % 0.9 % (0.0-3.0) 09/26/20 09:40 Basophils % 0.2 % (0.0-1.0) 09/26/20 09:40 Nucleated RBC % 0.0 k/mm3 (0-1) 09/26/20 09:40 Neutrophils # 8.5 K/mm3 (1.3-6.0) H 09/26/20 09:40 Lymphocytes # 1.42 k/mm3 (1.5-3.5) L 09/26/20 09:40 Monocytes # 1.2 k/mm3 (0.0-1.0) H 09/26/20 09:40 Eosinophils # 0.1 k/mm3 (0.0-0.7) 09/26/20 09:40 Absolute Basophils 0.0 k/mm3 (0.0-0.1) 09/26/20 09:40 Sodium 126 mmol/L (132-142) L 09/26/20 09:40 Plasma Sodium 127 mmol/L (130-142) L 09/26/20 09:40 Potassium 3.6 mmol/L (3.4-4.6) 09/26/20 09:40 Chloride 93 mmol/L (97-106) L 09/26/20 09:40 Carbon Dioxide 25.1 mmol/L (24-32.6) 09/26/20 09:40 Anion Gap 11.5 mmol/L (6.8-13.8) 09/26/20 09:40 BUN 16 mg/dL (6-23) 09/26/20 09:40 Creatinine 0.87 mg/dL (0.4-1.4) 09/26/20 09:40 Est GFR (Non-Af Amer) 90 mL/min (60-130) 09/26/20 09:40 BUN/Creatinine Ratio 18.4 (9.0-21.6) 09/26/20 09:40 Random Glucose 136 mg/dL (70-110) H 09/26/20 09:40 Calcium 8.2 mg/dL (7.9-10.9) 09/26/20 09:40 Calcium Adj for Albumin 8.5 mg/dL (8.4-10.2) 09/26/20 09:40 Total Bilirubin 0.9 mg/dL (0.0-1.1) 09/26/20 09:40 AST 27 U/L (0-48) 09/26/20 09:40 ALT 28 U/L (19-67) 09/26/20 09:40 Alkaline Phosphatase 52 U/L (50-170) 09/26/20 09:40 Total Protein 6.5 gm/dL (6.2-8.2) 09/26/20 09:40 Albumin 3.2 gm/dl (3.4-5.0) L 09/26/20 09:40 SARS-CoV-2 (PCR) Not detected (NotDetected) 09/26/20 10:35 Assessment/Plan - Narrative Narrative: Patient was evaluated medical chart was reviewed and decision to admit for observation for diagnosis of hyponatremia and generalized weakness was made. Patient is tolerating IV fluids without any issues, follow-up labs have been added for tomorrow morning for reevaluation of electrolytes. In the meantime we will keep him on telemetry and apply fall precautions to prevent any further falls. - Assessment/Plan (1) NPH (normal pressure hydrocephalus) Problem: Acute (2) Fall Problem: Acute (3) Contusion, hip Problem: Acute (4) Hyponatremia Problem: Acute (5) Weakness Problem: Acute (6) Back pain at L4-L5 level Problem: Chronic (7) Recurrent falls while walking Problem: Acute
[2020-09-26] MEDS: LOSARTAN POTASSIUM 50 MG TABLET PO SCH (15:55)
[2020-09-26] MEDS: ASPIRIN 325 MG TABLET.DR PO SCH (15:55)
[2020-09-26] MEDS: amLODIPine BESYLATE 10 MG TABLET PO SCH (15:55)
[2020-09-26] MEDS: MULTIVITAMINS 1 CAP CAPSULE PO SCH (15:56)
[2020-09-26] MEDS: ACETAMINOPHEN 500 MG TABLET PO PRN (19:32)
[2020-09-26] MEDS: PANTOPRAZOLE SODIUM 20 MG TABLET.DR PO SCH (20:14)
[2020-09-26] MEDS ORDERED: SIMVASTATIN 20 MG TABLET PO SCH (21:00)
[2020-09-27] MEDS: ACETAMINOPHEN 500 MG TABLET PO PRN (03:56)
[2020-09-27 06:35] LABS: Hematocrit 35.6 % (42.0-52.0); Hemoglobin 11.8 gm/dL (13.5-18.0); Mean Cell Volume 90.8 fl (78-100); Mean Corpuscular Hemoglobin 30.1 pg (27-31); Mean Corpuscular Hgb Conc 33.1 g/dl (32-36); Mean Platelet Volume 8.6 fl (8-11.3); Neutrophil % 66.8 % (42-75.0); Platelet Count 276 K/mm3 (150-450); Red Blood Count 3.92 M/mm3 (4.7-6.0); Red Cell Distribution Width 12.8 % (11.5-14.0); White Blood Count 10.5 K/mm3 (4.0-10.5)
[2020-09-27 06:46] LABS: Albumin * 2.9 gm/dl (3.4-5.0); Anion Gap 9.4 mmol/L (6.8-13.8); BUN/Creatinine Ratio 16.9 (9.0-21.6); Bilirubin, Total 0.6 mg/dL (0.0-1.1); Ca. Corrected For Albumin 8.4 mg/dL (8.4-10.2); Calcium * 7.8 mg/dL (7.9-10.9); Carbon Dioxide 26.3 mmol/L (24-32.6); Potassium 3.7 mmol/L (3.4-4.6); Total Protein 5.7 gm/dL (6.2-8.2)
[2020-09-27] MEDS: PANTOPRAZOLE SODIUM 20 MG TABLET.DR PO SCH (07:00)
[2020-09-27] MEDS: MULTIVITAMINS 1 CAP CAPSULE PO SCH (09:08)
[2020-09-27] MEDS: amLODIPine BESYLATE 10 MG TABLET PO SCH (09:08)
[2020-09-27] MEDS: ASPIRIN 325 MG TABLET.DR PO SCH (09:08)
[2020-09-27] MEDS: LOSARTAN POTASSIUM 50 MG TABLET PO SCH (09:09)
--- NOTE | 2020-09-27 09:20 | DS ---
(1) NPH (normal pressure hydrocephalus) Problem: Acute (2) Fall Problem: Acute (3) Contusion, hip Problem: Acute (4) Hyponatremia Problem: Acute (5) Weakness Problem: Acute (6) Back pain at L4-L5 level Problem: Chronic (7) Recurrent falls while walking Problem: Acute Date of Discharge:: 09/27/20 Hospital Course: Mr. Moore is doing well this morning, he is more alert and appears stronger. The patient is color has also improved. Labs this morning revealed resolution of his hyponatremia and all other electrolytes were in place. His only complaint this morning is discomfort in his right hip which started after one of the recent falls as a precaution we will order an x-ray of the involved hip to rule out any fracture. If results return negative we will discharge patient home. We discussed home health services at bedside and he declined and says he does not need them. So he was instructed continues on medications and to practice safe ambulation to avoid future falls. Right hip XRay is negative. Procedures Performed: none Results and Findings: Lab Pending Results 09/26/20 09:40: WBC 11.2 H, RBC 4.28 L, Hgb 13.0 L, Hct 38.2 L, MCV 89.3, MCH 30.4, MCHC 34.0, RDW 12.5, Plt Count 301, MPV 8.6, Immature Gran % (Auto) 0.60 H, Immature Gran # (Auto) 0.07 H, Neutrophils % 75.3 H, Lymphocytes % 12.7 L, Monocytes % 10.3 H, Eosinophils % 0.9, Basophils % 0.2, Nucleated RBC % 0.0, Neutrophils # 8.5 H, Lymphocytes # 1.42 L, Monocytes # 1.2 H, Eosinophils # 0.1, Absolute Basophils 0.0 09/26/20 09:40: Sodium 126 L, Plasma Sodium 127 L, Potassium 3.6, Chloride 93 L, Carbon Dioxide 25.1, Anion Gap 11.5, BUN 16, Creatinine 0.87, Est GFR (Non-Af Amer) 90, BUN/Creatinine Ratio 18.4, Random Glucose 136 H, Calcium 8.2, Calcium Adj for Albumin 8.5, Total Bilirubin 0.9, AST 27, ALT 28, Alkaline Phosphatase 52, Total Protein 6.5, Albumin 3.2 L 09/26/20 10:35: SARS-CoV-2 (PCR) Not detected 09/27/20 06:29: Sodium 131 L, Plasma Sodium 131, Potassium 3.7, Chloride 99, Carbon Dioxide 26.3, Anion Gap 9.4, BUN 14, Creatinine 0.83, Est GFR (Non-Af Amer) 95, BUN/Creatinine Ratio 16.9, Random Glucose 109, Calcium 7.8 L, Calcium Adj for Albumin 8.4, Total Bilirubin 0.6, AST 25, ALT 30, Alkaline Phosphatase 46 L, Total Protein 5.7 L, Albumin 2.9 L 09/27/20 06:29: WBC 10.5, RBC 3.92 L, Hgb 11.8 L, Hct 35.6 L, MCV 90.8, MCH 30.1, MCHC 33.1, RDW 12.8, Plt Count 276, MPV 8.6, Immature Gran % (Auto) 0.70 H, Immature Gran # (Auto) 0.07 H, Neutrophils % 66.8, Lymphocytes % 17.9 L, Monocytes % 11.3 H, Eosinophils % 2.9, Basophils % 0.4, Nucleated RBC % 0.0, Neutrophils # 7.0 H, Lymphocytes # 1.88, Monocytes # 1.2 H, Eosinophils # 0.3, Absolute Basophils 0.0 Discharge Location: Home Disposition: Home self-care Condition: Good Face to Face Encounter completed per [facility] Guidelines: No Discharge Activity: Activity as tolerated Discharge Diet: General/regular food Referrals: Karie Taylor MD [Primary Care Provider] - Complete Home Medications List: Complete Home Medication List: Multivitamin [Multivitamins] 1 ea PO DAILY 04/20/18 aspirin 325 mg tablet 325 mg PO DAILY 05/04/18 magnesium hydroxide 400 mg/5 mL oral suspension 30 ml PO BID PRN ml 05/11/18 walker See Dose Instructions .ROUTE .MEDSUPPLY #1 ea 05/22/18 potassium 99 mg tablet 99 mg PO DAILY 07/27/18 Posture Walker 0 .ROUTE .MEDSUPPLY #1 ea 10/21/19 Albuterol Sulfate [Ventolin HFA] 2 puff IH BID PRN 09/26/20 Fluticasone Propionate [Flonase] 2 spray NS DAILY 09/26/20 Losartan Potassium 50 mg PO DAILY 09/26/20 Montelukast Sodium [Singulair] 10 mg PO DAILY 09/26/20 Pravastatin Sodium 40 mg PO HS 09/26/20 amLODIPine BESYLATE [Norvasc] 10 mg PO DAILY 09/26/20 Forms: Patient Portal Registration
[2020-09-27 15:45] VITALS: BP 138/63
== END 2020-09-27 16:50 | disposition home or self-care (01) ==
LOC: MS 09:06 → ER 09:06 → MS 12:12
PROVIDERS: ADMIT Family Medicine; ATTEND Family Medicine